=== PATIENT | male | born 1960 | race Caucasian/White ===

== ENCOUNTER → 2021-11-06 | Outpatient (CLI) | payer BC ==
[~2021-11-06] MED LIST: BEBTELOVIMAB (EUA) 175 MG/2 ML VIAL IV ONE; SODIUM CHLORIDE 0.9% 500 ML 500 ML in EMPTY BAG 1 BAG IV PRN
[2021-11-06 13:19] VITALS: TEMP 97.7
[2021-11-06 13:50] VITALS: BP 126/76; PULSE 59; RESP 16
== END ==
LOC: PROCWHC3 12:10
PROVIDERS: ATTEND Nurse Practitioner Adult Health
DX: U07.1 COVID-19 (principal); Z28.310 Unvaccinated for COVID-19
CPT/HCPCS: Q0222; M0222